=== PATIENT | male | born 1955 | race Caucasian/White ===

== ENCOUNTER 2018-07-18 19:36 | Emergency (ER) | payer OTHER ==
[2018-07-18 22:18] LABS: Hematocrit 44 % (42-52); Hemoglobin 14.7 g/dl (14.0-18.0); Mean Corpuscular HGB Conc 34 g/dl (31-36); Mean Corpuscular Hemoglobin 30 pg (27-31); Mean Corpuscular Volume 90 fL (80-94); Platelet Count 166 10^3/ul (150-450); Red Blood Count 4.84 10^6/ul (4.00-5.40); Red Cell Distribution Width 13 % (10.5-15); White Blood Count 7.1 10^3/ul (3.5-10.8)
[2018-07-18 22:37] LABS: EGFR Non-African American 75.4 (>60)
--- NOTE | 2018-07-18 23:49 | ED ---
Lower Extremity - HPI Summary HPI Summary: 62-year-old male presents with left calf pain for the past couple days. He states this feels similar to when he has a dvt in the past. he just fly back from [place]. States pain is worsening when ambulates. No numbness or tingling. No injury. No back pain. No rash or fevers. He is nonsmoker. No family history of blood clots. has hx of factor V leidan. no chest pain or SOB. no other symptoms. - History of Current Complaint Chief Complaint: EDExtremityLower Stated Complaint: LT LEG PAIN Time Seen by Provider: 07/18/18 22:15 Pain Intensity: 3 - Allergies/Home Medications Allergies/Adverse Reactions: Allergies Allergy/AdvReac Type Severity Reaction Status Date / Time No Known Allergies Allergy Verified 07/18/18 19:47 Home Medications: Home Medications Doxazosin TAB* [Cardura TAB*] 1 tab PO DAILY 07/18/18 [History Confirmed ] PMH/Surg Hx/FS Hx/Imm Hx Endocrine/Hematology History: Reports: Hx Blood Disorders - heterozygous factor V Leiden mutation Respiratory History: Reports: Hx Sleep Apnea - 08/2013 chg'd to BiPAP History: Reports: Other Problems/Disorders - urinary frequency Musculoskeletal History: Reports: Other Musculoskeletal History - embolism & thrombosis (unspecified site per PCP records) Psychiatric History: Reports: Hx Anxiety - hx of, Hx Depression - hx of, Other Psychiatric Issues/Disorders - OCD - Surgical History Surgery Procedure, Year, and Place: 1990- [facility] [place] wisdom teeth extraction, 2002 eye refractive surgery Infectious Disease History: No Infectious Disease History: Denies: Traveled Outside the [place] in Last 30 Days - Social History Alcohol Use: Daily Alcohol Amount: 1 drink per day Substance Use Type: Reports: None Smoking Status (MU): Never Smoked Tobacco Review of Systems Negative: Fever Negative: Chest Pain Negative: Shortness Of Breath Positive: Myalgia - left calf pain All Other Systems Reviewed And Are Negative: Yes Physical Exam Triage Information Reviewed: Yes Vital Signs On Initial Exam: Initial Vitals Temp Pulse Resp BP Pulse Ox 98.4 F 67 16 131/87 98 07/18/18 19:45 07/18/18 19:45 07/18/18 19:45 07/18/18 19:45 07/18/18 19:45 Vital Signs Reviewed: Yes Appearance: Positive: Well-Appearing Skin: Positive: Warm, Dry Head/Face: Positive: Normal Head/Face Inspection Eyes: Positive: Normal, Conjunctiva Clear ENT: Positive: Pharynx normal Respiratory/Lung Sounds: Positive: Clear to Auscultation, Breath Sounds Present Cardiovascular: Positive: Normal, RRR Musculoskeletal: Positive: Limited @ - left calf, Other - tenderness left calf posterior, good pulses Neurological: Positive: Normal Psychiatric: Positive: Normal Diagnostics - Vital Signs Vital Signs Temp Pulse Resp BP Pulse Ox 07/18/18 19:45 98.4 F 67 16 131/87 98 - Laboratory Lab Results: Lab Results 07/18/18 07/18/18 Range/Units 22:05 22:05 WBC 7.1 (3.5-10.8) 10^3/ul RBC 4.84 (4.00-5.40) 10^6/ul Hgb 14.7 (14.0-18.0) g/dl Hct 44 (42-52) % MCV 90 (80-94) fL MCH 30 (27-31) pg MCHC 34 (31-36) g/dl RDW 13 (10.5-15) % Plt Count 166 (150-450) 10^3/ul MPV 7.0 L (7.4-10.4) fL Sodium 141 (135-145) mmol/L Potassium 4.5 (3.5-5.0) mmol/L Chloride 107 (101-111) mmol/L Carbon Dioxide 31 (22-32) mmol/L Anion Gap 3 (2-11) mmol/L BUN 19 (6-24) mg/dL Creatinine 1.01 (0.67-1.17) mg/dL Est GFR ( Amer) 91.2 (>60) Est GFR (Non-Af Amer) 75.4 (>60) BUN/Creatinine Ratio 18.8 (8-20) Glucose 102 H (70-100) mg/dL Calcium 9.2 (8.6-10.3) mg/dL Result Diagrams: 07/18/18 22:05 07/18/18 22:05 Lab Statement: Any lab studies that have been ordered have been reviewed, and results considered in the medical decision making process. - Ultrasound No standard instances Ultrasound Interpretation Completed By: Radiologist Summary of Ultrasound Findings: IMPRESSION: 1. Nonocclusive thrombus in the caudal left popliteal vein and adjacent. posterior tibial veins. 2. Otherwise negative left lower extremity venous duplex exam without. additional evidence of deep venous thrombosis. Lower Extremity Course/Dx - Course Course Of Treatment: 62-year-old male presents with left calf pain for the past couple days. He states this feels similar to when he has a dvt in the past. he just fly back from [place]. States pain is worsening when ambulates. No numbness or tingling. No injury. No back pain. No rash or fevers. He is nonsmoker. No family history of blood clots. has hx of factor V leidan. no chest pain or SOB. no other symptoms. On exam tenderness over left calf. Neurovascular intact. Ultrasound shows nonocclusive thrombus of popliteal vein. Discuss options with patient and decided on sxareltoo. We'll give a prescription for the xarelto for the next 21 days and told to follow up primary for continued care. Patient understands agrees with plan. - Diagnoses Differential Diagnosis/HQI/PQRI: Positive: DVT, Sprain, Strain Provider Diagnoses: DVT (deep venous thrombosis) Discharge - Sign-Out/Discharge Documenting (check all that apply): Patient Departure - Discharge Plan Condition: Good Disposition: HOME Prescriptions: Rivaroxaban TAB(*) [Xarelto 15 mg(*)] 15 mg PO BID #41 tab Patient Education Materials: Rivaroxaban (By mouth), Deep Vein Thrombosis (ED) Referrals: Enrique Hanks MD [Primary Care Provider] - Additional Instructions: Take xarelto twice a day for 21 days then once a day Take with food Avoid Aspirin or ibuprofen, use Tylenol for pain Follow up with primary care physician for continued care Return to ED if develop any chest pain or shortness of breath or any new or worsening symptoms - Billing Disposition and Condition Condition: GOOD Disposition: Home
[2018-07-18] MEDS ORDERED: Rivaroxaban TAB(*) 15 MG PO ONE (23:58)
[2018-07-19 00:15] VITALS: BP 130/82
== END 2018-07-19 00:14 | disposition home or self-care (01) ==
LOC: ED 19:36
DX: I82.432 Acute embolism and thrombosis of left popliteal vein (principal); D68.51 Activated protein C resistance; Z86.718 Personal history of other venous thrombosis and embolism
CPT/HCPCS: 36415; 80048; 85027; 99282